=== PATIENT | male | born 1990 | race Caucasian/White ===

== ENCOUNTER 2025-05-15 14:42 | Outpatient (AMB) | payer OTHER, SELFPAY ==
--- NOTE | 2025-05-15 15:06 | MHC.OFFWIV ---
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 Intake Note: presents with left ear pain Allergies No Known Allergies Allergy (Verified 05/15/25 15:13) Do you need a note to return to daycare/school/sports/work: No HPI HPI Comments History of Present Illness Details History - The patient is a 34-year-old male presenting with ear discomfort with mild fluid accumulation. - The patient reports wearing in-ear earbuds and noticed tightness in the ear without pain initially. - The discomfort began approximately one month ago, with mild pain developing about one to two weeks ago. - The patient attempted heat application, which initially alleviated the discomfort, but the symptoms returned and were more persistent. - The patient denies any significant dizziness, ringing in the ears, sinus pain, congestion, sore throat, fever, or cough. - The patient has a history of seasonal allergies in the spring but does not take regular medication for it. - The patient smokes cannabis but does not believe it contributes to the symptoms. - He denies fever, chills, RIVAS, dizziness, sinus pain or runny nose. Physical Exam General: Cooperative, healthy appearing, comfortable and no acute distress Orientation/consciousness: Patient oriented x3 Limitations: No limitations Head: Normal to inspection Ears: Hearing grossly normal bilaterally, external ears normal. Effusion noted on the left, no ear wax present. Left ear normal. TM is normal bilaterally, not bulging. Nose: Normal external nose present, normal nares present, and no nasal discharge present. Face and sinus: Sinuses nontender to palpation, no sinus pressure. Mouth: Normal oral and palatal mucosa present and moist mucous membranes noted. Throat: Tonsils normal. Uvula is midline. Posterior oropharynx with erythema and no exudates. Eyes: Appearance normal, both eyes and all related structures Neck: Normal visual inspection, full ROM. No lymphadenopathy noted. Respiratory: Clear to auscultation bilaterally. Normal respiratory effort, able to speak in complete sentences. No respiratory distress, not tachypneic, no tripod positioning and no use of accessory muscles. Cardiovascular: Regular rate and rhythm. Normal S1 and S2 Skin: No rashes or lesions noted Patient was informed and verbally consented to the use of an ambient scribe for clinic note documentation during this visit Review of Systems Const All systems reviewed & are unremarkable except as noted in HPI and below Physical Exam Vital Signs: Last Vital Signs Temp 98.5 F 05/15/25 15:10 Pulse 86 05/15/25 15:10 BP 160/60 H 05/15/25 15:10 Pulse Ox 99 05/15/25 15:10 Oxygen Delivery Method Room Air 05/15/25 15:10 BMI result Body Mass Index 24.4 Assessment & Plan Assessment & Plan (1) Left ear pain: Code(s): H92.02 - Otalgia, left ear Plan Most likely ET dysfunction vs effusion vs OM vs OE Plan - tylenol or motrin as needed for pain - avoid q-tips - Recommend trial of Zyrtec-D to alleviate fluid accumulation in the ear. - Advise avoiding use of in-ear earbuds to prevent exacerbation of symptoms. - VSS, pt well appearing Medications: New cetirizine-pseudoephedrine 5-120 mg ER 1 tab PO BID 14 tabs 0RF 7 days Coding Level of Care Code Est Pt Level 3 (63827) Diagnoses Left ear pain H92.02
[2025-05-15 15:10] VITALS: BP 160/60; PULSE 86; TEMP 36.9; O2SAT 99; BMI 24.4
== END 2025-05-15 15:53 | disposition home or self-care (01) ==
PROVIDERS: Visit Provider Physician Assistant Medical
DX: H92.02 Otalgia, left ear (principal)

== ENCOUNTER 2025-06-16 08:24 | Outpatient (AMB) | payer OTHER, SELFPAY ==
--- NOTE | 2025-06-14 12:13 | A.OFFPC_ITS ---
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
--- NOTE | 2025-06-14 12:13 | MHC.PC.OV ---
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
--- NOTE | 2025-06-16 08:34 | A.OFFPC_ITS ---
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 have lump on chest. no symptoms of prostate and n family history. lab work request. Supervisor Pumping Required: No Accompanied by: Self / Same As Patient Allergies No Known Allergies Allergy (Verified 06/16/25 08:37) Medication List - Last Reconciled 06/16/25 by Washington Thurman MD No Known Home Meds Tobacco use date assessed: 06/16/25 Dental Screening Dental Screen Date: 06/16/25 Did you have a dental visit in the last 12 months?: Yes Did you have a dental problem in the last 6 months where you did not have access to dental care?: No Was dental information given to patient?: Patient has dentist HPI HPI Comments History of Present Illness Details History of Present Illness The patient is a 34-year-old male presenting for a wellness visit and evaluation of a firm lump near the sternum. Musculoskeletal pain: - Reports a firm lump near the sternum w ith occasional pain, noticed about one to two weeks ago. - Advised to take ibuprofen and perform stretching exercises. Preventative care: - Discussed prostate cancer screening, n oting routine screening begins at age 50 unless risk factors are present. - Ordered laboratory tests including CBC , CMP, A1c, lipid panel, and STI screening. Review of Systems - General: Denies recent illness, report s good overall health. - Respiratory: Denies dyspnea or cough. - Cardiovascular: Denies chest pain. - Gastrointestinal: Denies abdominal abhijit n. - Neurological: Denies headaches, blurry vision, or difficulty swallowing. 10-point ROS reviewed and negative excep t as noted in HPI Physical Exam Gen: NAD, A&O x3 HEENT: NC/AT, PERRLA, EOMI, OP clear, MMM Neck: Supple, no LAD/JVD/bruit COR: RRR, S1 S2, no m/r/g Lungs: CTAB, BS equal bilat, no r/r/w Abd: NT/ND, +BS, no HSM, no mass/rebound/guarding, noted firm lump on one side of sternum with occasional pain Ext: No CCE, 2+ pulses Neuro: CN II-XII grossly intact, motor/sensory intact, reflexes 2+, gait normal Skin: WDI, no rash Assessment and Plan 1. Musculoskeletal pain - Recommended ibuprofen and stretching e xercises. - Consider imaging if symptoms persist. 2. Preventative care - Conducted laboratory tests and discuss ed prostate cancer screening guidelines. Patient Instructions - Take ibuprofen as needed for pain, up to 400 mg every six hours. - Engage in regular stretching exercises to alleviate musculoskeletal discomfort. - Follow up for lab results and further discussion on preventative care. Exercise Counseling ? Provided exercise counseling (4 minutes). Reviewed benefits for cardiovascular, metabolic, musculoskeletal, and mental health. * Recommended >=50 min/week moderate-intensity activity (e.g., brisk walking, cycling) or >=5 min vigorous activity. * Strength training at least 2 days/week for major muscle groups. * Encouraged gradual progression, proper footwear, and activities patient enjoys. Patient interested; resources and follow-up plan provided. [facility] Family History (Updated 06/16/25 @ 08:38 by Elizabeth Martínez MA) Father No problems noted. Mother No problems noted. Social History (Updated 06/16/25 @ 08:48 by Elizabeth Martínez MA) Housing: House Alcohol intake: current Alcohol intake frequency: does not drink Patient Tobacco Use Status: Never used Tobacco Substance Use Type: Marijuana service: No Current occupational status: employed Cognitive needs: No Hearing needs: No Vision needs: Yes (rx glasses) Questionnaire PHQ-9 Over the last 2 weeks, how often have you been bothered by any of the following problems? 1. Little interest or pleasure in doing things: not at all 2. Feeling down, depressed, or hopeless: not at all 3. Trouble falling or staying asleep, or sleeping too much: not at all 4. Feeling tired or having little energy: not at all 5. Poor appetite or overeating: not at all 6. Feeling bad about yourself - or that you are a failure or have let yourself or your family down: not at all 7. Trouble concentrating on things, such as reading the newspaper or watching television: not at all 8. Moving or speaking so slowly that other people could have noticed. Or the opposite - being so fidgety or restless that you have been moving around a lot more than usual: not at all 9. Thoughts that you would be better off or of hurting yourself in some way: not at all Total score: 0 Depression Screening Interpretation: Negative Depression Screening Done: Yes Source: Developed by Drs. Eagle Ochoa, Christine Roe, Andi Massey and colleagues, with an educational luis from [employer]. Thrive Questionnaire Date Thrive assessed: 06/16/25 I am a: Patient What is your living situation today?: I have a steady place to live Within the past 12 months, did the food you bought not last and you didn't have the money to get more?: Never true Within the past 12 months, did you worry whether your food would run out before you got money to buy more?: Never true Do you have trouble paying for medicines?: No Do you have trouble getting transportation to medical appointments?: No Do you have trouble paying your heating and electricity bill?: No Do you have trouble taking care of your child, family member or friend?: No Do you have trouble with day-to-day activities such as bathing, preparing meals, shopping, managing finances, etc.?: No Are you currently unemployed and looking for a job?: No Are you interested in more education?: No Please select the resources that you would like help with: None Currently or been in a relationship where the following occur: No concerns reported THRIVE Score: 0 AUDIT C Alcohol Use Questionnaire (AUDIT-C) 1. How often do you have a drink containing alcohol?: Never 3. How often do you have six or more drinks on one occasion?: Never Total Score: 0 СВЕТЛАНА-7 AMB Questionnaire СВЕТЛАНА-7 Date СВЕТЛАНА - 7 assessed: 06/16/25 Feeling nervous, anxious, or on edge: 0 = Not at all Not being able to stop or control worryin = Not at all Worrying too much about different things: 0 = Not at all Trouble relaxin = Not at all Being so restless that it is hard to sit still: 0 = Not at all Becoming easily annoyed or irritable: 0 = Not at all Feeling afraid as if something awful might happen: 0 = Not at all Total СВЕТЛАНА-7 score (0-4 normal; 5-9 mild; 10-14 moderate; 15-21 severe): 0 Source: Developed by Drs. Eagle Ochoa, Christine Roe, Andi Massey and colleagues, with an educational luis from [employer]. Physical exam (Primary Care) Vital Signs: Last Vital Signs Temp 97.6 F 06/16/25 08:48 Pulse 76 06/16/25 08:48 Resp 16 06/16/25 08:48 BP 126/86 06/16/25 08:48 Pulse Ox 99 06/16/25 08:48 Oxygen Delivery Method Room Air 06/16/25 08:48 BMI result Body Mass Index 23.6 Tobacco/Smoking Status: Tobacco use Status Tobacco use date assessed 06/16/25 06/16/25 08:41 Patient Tobacco Use Status Never used Tobacco 06/16/25 08:48 PHQ-9: PHQ-9 Score PHQ-9: Total score 0 06/16/25 08:41 Depression Screening Interpretation: Negative Thrive Assessment: Date of Thrive Assessment Date Thrive assessed 06/16/25 06/16/25 08:41 Currently or been in a relationship where the following occur: No concerns reported Coding Level of Care Code New Pt Level 3 (55834) Diagnoses Regular check-up Z00.00 Routine lab draw Z01.89 Encounter for screening, unspecified Z13.9 Hypertension screen Z13.6 Routine screening for STI (sexually transmitted infection) Z11.3 Screening for diabetes mellitus Z13.1 Screening for lipoid disorders Z13.220 Exercise counseling Z71.82 Dietary counseling Z71.3 Counseling, unspecified Z71.9 Musculoskeletal chest pain R07.89 Assessment & Plan Assessment & Plan (1) Regular check-up: Code(s): Z00.00 - Encounter for general adult medical examination without abnormal findings (2) Routine lab draw: Code(s): Z01.89 - Encounter for other specified special examinations (3) Encounter for screening, unspecified: Code(s): Z13.9 - Encounter for screening, unspecified (4) Hypertension screen: Code(s): Z13.6 - Encounter for screening for cardiovascular disorders (5) Routine screening for STI (sexually transmitted infection): Code(s): Z11.3 - Encounter for screening for infections with a predominantly sexual mode of transmission (6) Screening for diabetes mellitus: Code(s): Z13.1 - Encounter for screening for diabetes mellitus (7) Screening for lipoid disorders: Code(s): Z13.220 - Encounter for screening for lipoid disorders (8) Exercise counseling: Code(s): Z71.82 - Exercise counseling (9) Dietary counseling: Code(s): Z71.3 - Dietary counseling and surveillance (10) Counseling, unspecified: Code(s): Z71.9 - Counseling, unspecified (11) Musculoskeletal chest pain: Code(s): R07.89 - Other chest pain Plan Orders: Orders Lipid Panel Today Z00.00 - Encounter for general adult medical examination without abnormal findings Hepatitis C Antibody Today Z00.00 - Encounter for general adult medical examination without abnormal findings Syphilis Screen Today Z00.00 - Encounter for general adult medical examination without abnormal findings Complete Blood Count Auto Diff Today Z00.00 - Encounter for general adult medical examination without abnormal findings Comprehensive Met. Panel Today Z00.00 - Encounter for general adult medical examination without abnormal findings UA CC w/rflx Micro + Cult Today Z00.00 - Encounter for general adult medical examination without abnormal findings Hemoglobin A1c Today Z00.00 - Encounter for general adult medical examination without abnormal findings Hepatitis B Surface Antibody Today Z00.00 - Encounter for general adult medical examination without abnormal findings Hepatitis B Surface Antigen Today Z00.00 - Encounter for general adult medical examination without abnormal findings HIV Ab/Ag Today Z00.00 - Encounter for general adult medical examination without abnormal findings Chlamydia Species Ab Panel Today Z00.00 - Encounter for general adult medical examination without abnormal findings CT NG by PCR Urine Today Z00.00 - Encounter for general adult medical examination without abnormal findings
[2025-06-16 08:48] VITALS: BP 126/86; PULSE 76; RESP 16; TEMP 36.4; O2SAT 99; BMI 23.6
== END 2025-06-16 09:13 | disposition home or self-care (01) ==
LOC: HO.HMCFMS 08:25
PROVIDERS: PCP Student in an Organized Health Care Education/Training Program; Visit Provider Student in an Organized Health Care Education/Training Program
DX: Z00.00 Encounter for general adult medical examination without abnormal findings (principal); R07.89 Other chest pain

== ENCOUNTER 2025-06-16 08:24 | Outpatient (REF) | payer OTHER, SELFPAY ==
[2025-06-16 14:06] LABS: MANUAL DIFF FLAG NO
[2025-06-16 14:13] LABS: Hematocrit 45.5 % (42.0-52.0); Hemoglobin 15.2 g/dl (14.0-18.0); Imm Gran Abs Auto 0.02 X10*3/uL (0.00-0.03); Imm Gran Pct Auto 0.3 % (0.0-0.4); Lymphocytes Absolute Auto 1.9 X10*3/uL (1.2-4.9); Mean Corpuscular HGB Conc 33.4 g/dl (31.0-36.0); Mean Corpuscular Hemoglobin 28.8 pg (27.0-33.0); Mean Corpuscular Volume 86.2 fL (80.0-98.0); NRBC Abs Auto 0.000 X10*3/uL (0.0-0.012); NRBC Pct Auto 0.0 /100WBC (0.0-0.2); Platelet Count 227 X10*3/uL (160-400); Red Blood Count 5.28 X10*6/uL (4.60-5.80); White Blood Count 5.9 X10*3/uL (4.8-10.8)
[2025-06-16 14:23] LABS: Appearance Urine Clear; Glucose Urine UA Negative (Negative); PH 6.5 (5.0-9.0); Specific Gravity - Urine 1.015 (1.005-1.025)
[2025-06-16 14:33] LABS: Alanine Aminotransferase 44 U/L (0-40); Albumin Level 4.6 g/dL (3.5-5.0); Alkaline Phosphatase 94 U/L (39-117); Anion Gap 13 (12-20); Aspartate Amino Transferase 30 U/L (5-37); Blood Urea Nitrogen 17 mg/dL (9-16); Calcium 9.0 mg/dL (8.4-10.2); Carbon Dioxide 27 mmol/L (22-29); Chloride 106 mmol/L (96-108); Cholesterol 193 mg/dL (<200); Estimated Glomerular Filt Rate > 60; HDL Cholesterol 35 mg/dL (>40); Potassium 3.9 mmol/L (3.3-5.1); Sodium 142 mmol/L (135-145); Total Protein 7.4 g/dL (6.5-8.0); Triglycerides 143 mg/dL (<150)
[2025-06-16 15:50] LABS: CT PCR Urine NOT DETECTED (Not Detect.); NG PCR Urine NOT DETECTED (Not Detect.)
[2025-06-17 03:29] LABS: Syphilis Screen Nonreactive (Nonreactive)
[2025-06-17 04:14] LABS: HBS Num1 0.40 mIU/mL (0-7.99); HBsAGNum1 0.41 S/CO (0.00-0.99); HIV Num 1 0.04 S/CO (0.00-0.99); Hepatitis B Surface Antigen Negative (Negative); ~HepC Num1 0.06 S/CO (0.00-0.79); ~Hepatitis B Surface Antibody NONREACTIVE (Nonreactive); ~Hepatitis C Antibody Nonreactive (Nonreactive)
[2025-06-21 12:13] LABS: Chlamydia Trachomatis IgA <1:16 titer (<1:16)
== END 2025-06-16 08:25 | disposition home or self-care (01) ==
LOC: HO.HKASLDS 08:24
PROVIDERS: Visit Provider Student in an Organized Health Care Education/Training Program
DX: Z00.00 Encounter for general adult medical examination without abnormal findings (principal); Z01.89 Encounter for other specified special examinations; Z13.9 Encounter for screening, unspecified; Z13.6 Encounter for screening for cardiovascular disorders; Z11.3 Encounter for screening for infections with a predominantly sexual mode of transmission; Z13.1 Encounter for screening for diabetes mellitus; Z13.220 Encounter for screening for lipoid disorders; Z71.82 Exercise counseling; Z71.3 Dietary counseling and surveillance; Z71.9 Counseling, unspecified; R07.89 Other chest pain
CPT/HCPCS: 80053; 80061; 81003; 83036; 85025; 86631; 86632; 86706; 86780; 86803; 87340; 87389; 87491; 87591

== ENCOUNTER 2025-06-30 09:50 | Outpatient (AMB) | payer OTHER, SELFPAY ==
--- NOTE | 2025-06-30 09:54 | A.OFFPC_ITS ---
Vital Signs 06/30/25 09:56 Height 5 ft 11.57 in Weight 173 lb 4 oz BMI 23.8 BP 104/68 Blood Pressure Location Lt brachial Position Sitting Respiration 16 Pulse 76 Pulse Source Pulse Oximeter Temp 98.2 F Temp Source Oral Pulse Oximetry (%) 97 Oxygen Delivery Method Room Air Intake Visit Reasons: 2 week follow up Intake Note: pt here for physical. have lump on chest. no symptoms of prostate and n family history. lab work request. 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 Elevated ALT level: - ALT level is slightly elevated at 44 U /L, with normal cutoff at 40 U/L, possibly due to high cheese consumption. Hyperlipidemia: - LDL cholesterol is 130 mg/dL, HDL is 3 5 mg/dL, with dietary habits contributing to lipid profile. Lack of Hepatitis B vaccination: - Patient lacks Hepatitis B antibodies, indicating no prior vaccination. Review of Systems 10-point ROS reviewed and negative excep t as noted in HPI Past Medical History Health Maintenance - Discussed the need for Hepatitis B vac cination due to lack of antibodies. Physical Exam General: Well-appearing, in no acute distress. Vital signs: Within normal limits. HEENT: Normocephalic, atraumatic. PERRLA, EOMI. Conjunctiva clear, sclera anicteric. Oropharynx clear, mucous membranes moist. TMs intact bilaterally. Neck: Supple, no lymphadenopathy, no thyromegaly, no JVD or carotid bruits. Cardiovascular: RRR, normal S1/S2, no murmurs, rubs, or gallops. Peripheral pulses 2+ and symmetric. No edema. Respiratory: Lungs clear to auscultation bilaterally, no wheezes, rales, or rhonchi. Normal effort. Abdomen: Soft, non-tender, non-distended. Normoactive bowel sounds. No hepatosplenomegaly, no masses. MSK: Full range of motion, no joint swelling or deformity. Normal gait. Skin: Warm, dry, intact. No rashes, lesions, or pallor. Neuro: Alert and oriented x3. Cranial nerves II-XII intact. Strength 5/5 throughout. Sensation intact. Reflexes 2+ symmetric. Normal coordination and gait. Psych: Appropriate mood and affect. Normal judgment and insight. Plan 1. Elevated Alt Level - Repeat liver function tests in six mon ths; advised reducing cheese intake to lower ALT levels. 2. Hyperlipidemia - Dietary changes recommended to improve lipid profile; reassess in six months. 3. Lack Of Hepatitis B Vaccination - Plan to administer Hepatitis B vaccine when available. Discussion Notes I discussed with the patient the slightly elevated ALT level and its potential link to dietary habits, particularly cheese consumption. We also reviewed the lipid profile, noting elevated LDL and low HDL cholesterol, and the importance of dietary modifications. I informed the patient about the lack of Hepatitis B antibodies and the need for vaccination once available. Follow-up labs are connor nned in six months to monitor these conditions. Patient Instructions - Reduce cheese intake to help lower cho lesterol and liver enzyme levels. - Return for follow-up lab tests in six months. - Await notification for Hepatitis B vac cination availability. [facility] Family History Father No problems noted. Mother No problems noted. Social History Housing: House Alcohol intake: current Alcohol intake frequency: does not drink Patient Tobacco Use Status: Never used Tobacco Substance Use Type: Marijuana service: No Current occupational status: employed Cognitive needs: No Hearing needs: No Vision needs: Yes (rx glasses) Questionnaire PHQ-9 Over the last 2 weeks, how often have you been bothered by any of the following problems? 1. Little interest or pleasure in doing things: not at all 2. Feeling down, depressed, or hopeless: not at all 3. Trouble falling or staying asleep, or sleeping too much: not at all 4. Feeling tired or having little energy: not at all 5. Poor appetite or overeating: not at all 6. Feeling bad about yourself - or that you are a failure or have let yourself or your family down: not at all 7. Trouble concentrating on things, such as reading the newspaper or watching television: not at all 8. Moving or speaking so slowly that other people could have noticed. Or the opposite - being so fidgety or restless that you have been moving around a lot more than usual: not at all 9. Thoughts that you would be better off or of hurting yourself in some way: not at all Total score: 0 Depression Screening Interpretation: Negative Depression Screening Done: Yes Source: Developed by Drs. Eagle Ochoa, Christine Roe, Andi Massey and colleagues, with an educational luis from [employer]. Thrive Questionnaire Date Thrive assessed: 06/16/25 I am a: Patient What is your living situation today?: I have a steady place to live Within the past 12 months, did the food you bought not last and you didn't have the money to get more?: Never true Within the past 12 months, did you worry whether your food would run out before you got money to buy more?: Never true Do you have trouble paying for medicines?: No Do you have trouble getting transportation to medical appointments?: No Do you have trouble paying your heating and electricity bill?: No Do you have trouble taking care of your child, family member or friend?: No Do you have trouble with day-to-day activities such as bathing, preparing meals, shopping, managing finances, etc.?: No Are you currently unemployed and looking for a job?: No Are you interested in more education?: No Please select the resources that you would like help with: None Currently or been in a relationship where the following occur: No concerns reported THRIVE Score: 0 AUDIT C Alcohol Use Questionnaire (AUDIT-C) 1. How often do you have a drink containing alcohol?: Never 3. How often do you have six or more drinks on one occasion?: Never Total Score: 0 СВЕТЛАНА-7 AMB Questionnaire СВЕТЛАНА-7 Date СВЕТЛАНА - 7 assessed: 06/16/25 Feeling nervous, anxious, or on edge: 0 = Not at all Not being able to stop or control worryin = Not at all Worrying too much about different things: 0 = Not at all Trouble relaxin = Not at all Being so restless that it is hard to sit still: 0 = Not at all Becoming easily annoyed or irritable: 0 = Not at all Feeling afraid as if something awful might happen: 0 = Not at all Total СВЕТЛАНА-7 score (0-4 normal; 5-9 mild; 10-14 moderate; 15-21 severe): 0 Source: Developed by Drs. Eagle Ochoa, Christine Roe, Andi Massey and colleagues, with an educational luis from [employer]. Physical exam (Primary Care) Vital Signs: Last Vital Signs Temp 98.2 F 06/30/25 09:56 Pulse 76 06/30/25 09:56 Resp 16 06/30/25 09:56 BP 104/68 06/30/25 09:56 Pulse Ox 97 06/30/25 09:56 Oxygen Delivery Method Room Air 06/30/25 09:56 BMI result Body Mass Index 23.8 Tobacco/Smoking Status: Tobacco use Status Tobacco use date assessed 06/16/25 06/30/25 10:00 Patient Tobacco Use Status Never used Tobacco 06/30/25 10:00 PHQ-9: PHQ-9 Score PHQ-9: Total score 0 06/30/25 10:00 Depression Screening Interpretation: Negative Thrive Assessment: Date of Thrive Assessment Date Thrive assessed 06/16/25 06/30/25 10:00 Currently or been in a relationship where the following occur: No concerns reported Coding Level of Care Code Est Pt Level 3 (29541) Diagnoses Encounter to discuss test results Z71.2 Elevated ALT measurement R74.01 Hyperlipidemia E78.5 Other underimmunization status Z28.39 Assessment & Plan Assessment & Plan (1) Encounter to discuss test results: Code(s): Z71.2 - Person consulting for explanation of examination or test findings (2) Elevated ALT measurement: Code(s): R74.01 - Elevation of levels of liver transaminase levels (3) Hyperlipidemia: Code(s): E78.5 - Hyperlipidemia, unspecified (4) Other underimmunization status: Code(s): Z28.39 - Other underimmunization status Plan
[2025-06-30 09:56] VITALS: BP 104/68; PULSE 76; RESP 16; TEMP 36.8; O2SAT 97; BMI 23.8
== END 2025-06-30 10:07 | disposition home or self-care (01) ==
PROVIDERS: PCP Student in an Organized Health Care Education/Training Program; Visit Provider Student in an Organized Health Care Education/Training Program
DX: R74.01 Elevation of levels of liver transaminase levels (principal); E78.5 Hyperlipidemia, unspecified; Z28.39 Other underimmunization status; Z71.2 Person consulting for explanation of examination or test findings